=== PATIENT | male | born 1940 | race Two or more races ===

== ENCOUNTER 2024-01-09 10:51 | Emergency (ER) | payer MEDICARE, SELFPAY ==
[2024-01-09 11:35] VITALS: BP 167/83; PULSE 72; RESP 18; TEMP 37.2; O2SAT 98
[2024-01-09 11:51] VITALS: BMI 32.3
--- NOTE | 2024-01-09 12:02 | XR_ITS ---
Examination: Duplex scan of the upper extremity, unilateral left complete Date and time of exam: December 13, 2023 1337 hrs. Indications: Left arm pain burning sensation several months Technique: Duplex scan of the extremity veins using B-mode/grayscale imaging and Doppler spectral analysis and color flow Attention is directed to internal echogenicity, compression and augmentation involving these veins, color flow assessment, spectral analysis Findings: Major deep venous structures in the extremity demonstrate normal course and caliber. There is no evidence of deep vein thrombosis. Normal color flow and spectral analysis Impression: Negative for DVT..
--- NOTE | 2024-01-09 12:02 | EKG_ITS ---
[facility] (Formerly [facility]) Test Date: 2024-01-09 Pat Name: MARK ANTHONY COLES Department: Room: - Gender: Male Showroom Consultant: : 1940 Requested By: David Marinelli Order Number: [id number] Reading MD: David Marinelli Measurements Intervals [place] Rate: 55 P: 53 IA: 165 QRS: -5 QRSD: 92 T: 66 QT: 400 QTc: 384 Interpretive Statements SINUS BRADYCARDIA Compared to ECG 06/14/2023 20:27:31 Sinus rhythm no longer present /store/S0/[id number].pdf
--- NOTE | 2024-01-09 12:03 | XR_ITS ---
Examination: AP chest single view Technique one AP portable semiupright chest single view Date and time: January 09, 2020 4:12 PM Comparison October 03, 2023 Indications: Onset left-sided chest pain today Findings: Normal heart size Ectatic thoracic aorta. No pneumonia or pulmonary edema Moderate osteopenia Impression: No active disease
--- NOTE | 2024-01-09 12:04 | EDNOTE_ITS ---
ED Extremity Problem RME/HPI General Chief complaint: Extremity Problem,Nontraumatic Stated complaint: LEFT ARM PAIN WITH HX SHINGLES Time Seen by Provider: 01/09/24 11:51 Arrival date/time: 01/09/24 10:51 RME / HPI RME / HPI Narrative: 83-year-old male patient came in for evaluation regarding left arm pain. This been ongoing since June, comes and goes, getting worst for the last few days pain radiates to the left chest. Patient had a history of shingles last June. Patient denies any cough denies any other complaints no medication was taken prior to arrival. Related Data Previous Rx's ?Medication ?Instructions ?Recorded hydrocodone 5 mg-acetaminophen 325 1 tab PO Q6H PRN severe pain #10 10/10/17 mg tablet ([place]) tabs ibuprofen 600 mg tablet 600 mg PO TID PRN pain #20 tabs 10/10/17 prednisone 20 mg tablet 20 mg PO QDAY #7 tabs 10/10/17 ibuprofen 600 mg tablet 600 mg PO Q6H PRN pain #30 tabs 10/03/23 ondansetron 4 mg disintegrating 4 mg PO Q6H PRN nausea and 10/03/23 tablet vomiting #10 tabs ibuprofen 600 mg tablet 600 mg PO TID PRN pain #30 tabs 01/09/24 Allergies Allergy/AdvReac Type Severity Reaction Status Date / Time Penicillins Allergy Unknown Verified 01/09/24 10:57 Review of Systems Review of Systems Narrative Review of Systems: Review of system reviewed and within normal limits except mentioned in HPI ED Exam Narrative Physical exam: VITAL SIGNS: Reviewed. GENERAL APPEARANCE: Alert and interactive, follows commands, no acute distress, HEAD AND FACE: Non-traumatic. ENT: PERRL, pink conjunctivitis, eyelid no trauma, Mucous membrane moist. NECK: Supple, nontender, no nuchal rigidity. CHEST: No tenderness, no crepitus, no paradoxical movement, no retractions. LUNGS: Clear, well ventilated, symmetric, no rales, no wheezing, no ronchi, no stridor, good breath sounds bilaterally. HEART: Regular rate, regular rhythm, no murmur, no gallops. ABDOMEN: Soft, positive bowel sounds, nondistended, no guarding, nontender, no rebound, no masses, RECTAL: Deferred. GENITAL: Deferred. NEUROLOGICAL: Gross motor function intact sensory function intact, Appropriate for age. MUSCULOSKELETAL: low back nontender, full range of motion. EXTREMITIES: Left forearm tenderness, no swelling no redness, full range of motion. Distal neurovascular status intact bilateral upper extremity SKIN: Color pink, dry, no rash, no lacerations, no abrasions, no contusions. LYMPHATICS: Deferred. Course Quality Measures none Orders Category Date Time Status EKG (ED ONLY) *Do not use* NOW Care 01/09/24 12:03 Completed EKG (ED Only) Stat Exams 01/09/24 12:02 Draft US venous doppler UE LT Stat Exams 01/09/24 12:02 Taken XR chest 1V Stat Exams 01/09/24 12:03 Completed CBC [CBC] Stat Lab 01/09/24 12:16 Completed CMP [Comprehensive Metabolic Panel] Stat Lab 01/09/24 12:16 Completed PTT [Partial Thromboplastin Time] Stat Lab 01/09/24 12:16 Completed Troponin I Stat Lab 01/09/24 12:16 Completed Acetaminophen Tab [Tylenol ES Tab] Med 01/09/24 12:02 Discontinued 1,000 mg PO X1 ONE Vital Signs Vital signs: Vital Signs Temperature 98.9 F 01/09/24 11:35 Pulse Rate 72 01/09/24 11:35 Respiratory Rate 18 01/09/24 11:35 Blood Pressure 167/83 H 01/09/24 11:35 Pulse Oximetry (%) 98 01/09/24 11:35 Oxygen Delivery Method Room Air 01/09/24 11:35 Extremity Problem MDM Narrative MDM Narrative:: 83 year-old male patient came in for evaluation regarding left arm pain. This been ongoing since June, comes and goes, getting worst for the last few days pain radiates to the left chest. Patient had a history of shingles last June. Patient denies any cough denies any other complaints no medication was taken prior to arrival. Patient's cardiac workup all came back unremarkable. Ultrasound of the left lower extremity also came back unremarkable. Troponin is normal chest x-ray is normal. Results discussed with the patient. Patient stable for discharge home. Patient data External records reviewed:: None Clinical information provided by:: patient Social determinants that could affect healthcare access:: none Patient has the following chronic illnesses:: None How is presenting disease/condition affected by chronic disease/condition?: no chronic disease Evaluation data The following diagnostics were reviewed and interpreted by me:: lab results, radiology exam(s) and EKG tracing(s) Lab and/or radiology exams considered but not ordered:: None Interpretation Summary: EKG as interpreted by me showed sinus bradycardia, no ST segment elevation depression noted. Ultrasound of the left upper extremity is negative for DVT. Patient's cardiac workup all came back unremarkable. Troponin is normal Medications / Prescriptions Medications or Prescriptions considered but not ordered:: None Medication administrations:: Medication Administration History Discontinued Medications Acetaminophen (Acetaminophen 500 Mg Tablet) 1,000 mg PO X1 ONE Stop: 01/09/24 12:03 Last Admin: 01/09/24 12:19 Dose: 1,000 mg Documented By: MAHNAZ Tylenol Consultations Consultation(s) initiated? (list below): No Diagnosis Extremity Problem Differential Diagnosis: cellulitis, deep venous thrombosis of upper extremity and other (Arm pain) Most likely diagnosis given after review of the tests above:: Arm pain Admission Indicated Admission indicated?: not indicated Explain why admission is indicated or not indicated:: Stable Admission Request Was there a request for admission?: No Disposition Plan Disposition Plan: Discharge Discharge Attestation Discharge Attestation: The patient and all family members were given an opportunity to ask questions and understood the discharge instructions. Discharge instructions specifically effects, indications for sooner follow up or return to the emergency department, and the expected course of current diagnosis. Patient condition: Stable Discharge Plan Plan Patient Disposition: HOME (Self Care) Disposition Comment: stable Prescriptions/Referrals Prescriptions/Med Rec: New ibuprofen 600 mg tablet 600 mg PO TID PRN (Reason: pain) Qty: 30 0RF No Action ibuprofen 600 mg tablet 600 mg PO TID PRN (Reason: pain) Qty: 20 0RF hydrocodone-acetaminophen [[place]] 5-325 mg tablet 1 tab PO Q6H MDD 4 tabs per day PRN (Reason: severe pain) Qty: 10 0RF prednisone 20 mg tablet 20 mg PO QDAY Qty: 7 0RF ibuprofen 600 mg tablet 600 mg PO Q6H PRN (Reason: pain) Qty: 30 0RF ondansetron 4 mg tablet,disintegrating 4 mg PO Q6H PRN (Reason: nausea and vomiting) Qty: 10 0RF Referrals: Kyle Carrasco MD [Primary Care Provider] - In 1 week Problem List Clinical Impression: Arm pain Patient/Caregiver Discharge Instructions Discharge Activity: activity as tolerated Education Materials: Understanding the Pain Response Additional Instructions: Thank you for the opportunity for serving you today. You are stable for discharged . You are advised to: Follow-up with your PCP in 1 to 2 days Return to ED for worsening of symptoms Increase oral fluids Take medication as prescribed Print Language: Salvad[place] Stand Alone Forms: Ita Award Info., Patient Portal Info Letter PA/FAY Supervising Physician PA/FAY Supervising Physician: MD Michael
[2024-01-09] MEDS: ACETAMINOPHEN 500 MG TABLET 1000 MG PO (12:19)
[2024-01-09 12:41] LABS: Basophils % (Auto) 0 % (0-2.5); Eosinophils % (Auto) 0 % (0-10); Hematocrit 42.5 % (41.0-53.0); Immature Granulocytes % (Auto) 0 % (0-0); Immature Granulocytes Auto 0.02 Thou/mm3 (0.00-0.00); Lymphocytes # (Auto) 1.2 Thou/mm3 (1.0-4.8); Lymphocytes % (Auto) 20 % (10-50); Mean Corpuscular HGB Conc 35.3 g/dl (31.0-37.0); Mean Corpuscular Hemoglobin 30.1 pg (25.0-35.0); Mean Corpuscular Volume 85 fL (80-100); Monocytes # (Auto) 0.5 Thou/mm3 (0.0-0.8); Monocytes % (Auto) 8 % (0-12); Neutrophils # (Auto) 4.6 Thou/mm3 (1.8-7.7); Neutrophils % (Auto) 72 % (37-80); Nucleated Red Blood Cell % 0 /100 WBC (0); Platelet Count 219 Thou/mm3 (140-440); RDW Standard Deviation 38.4 fL (35.1-43.9); Red Blood Count 4.99 Miln/mm3 (4.50-5.90); White Blood Count 6.4 Thou/mm3 (3.8-10.6)
[2024-01-09 12:58] LABS: Partial Thromboplastin Time 25.8 Seconds (22.0-36.0)
[2024-01-09 12:59] LABS: Alanine Aminotransferase 16 U/L (10-49); Albumin, Serum 4.9 gm/dL (3.4-4.8); Albumin/Globulin Ratio 1.8 (1.2-2.2); Alkaline Phosphatase 104 U/L (46-116); Anion Gap 7 (7-16); Aspartate Amino Transferase 28 U/L (0-34); BUN/Creatinine Ratio 17 Ratio (12-20); Bilirubin,Total 0.6 mg/dL (0.3-1.2); Blood Urea Nitrogen 20 mg/dL (9-23); Calcium 10.1 mg/dL (8.3-10.6); Calcium (Corrected) 10.1 mg/dL (8.5-10.1); Carbon Dioxide 28.6 mMol/L (20.0-31.0); Chloride 97 mMol/L (98-107); Creatinine (Component) 1.2 mg/dL (0.6-1.3); Estimated Creatinine Clearance 49.2 mL/min (>60); Globulin 2.7 gm/dL (2.3-3.5); Glucose 136 mg/dL (74-106); Osmolality,Calculated 270 (275-295); Potassium 3.6 mMol/L (3.4-5.1); Sodium 133 mMol/L (136-145); Total Protein 7.6 gm/dL (5.7-8.2); Troponin I < 0.020 ng/mL (0.0-0.045); eGFR > 60 See Note
[2024-01-09 15:04] VITALS: BP 137/86; PULSE 57; RESP 18; TEMP 36.4; O2SAT 99
--- NOTE | 2024-01-09 16:02 | PC.NURSE ---
Called Radiology about reading xray, per Rosalind pipe connector states radiologists reading exams right now.
== END 2024-01-09 16:17 | disposition home or self-care (01) ==
PROVIDERS: Nurse Practitioner Family; Emergency Provider Emergency Medicine; PCP Family Medicine
DX: M79.602 Pain in left arm (principal); R07.9 Chest pain, unspecified
CPT/HCPCS: 36415; 71045; 80053; 84484; 85025; 85730; 93005; 93971; 99284; A9270

== ENCOUNTER 2024-07-05 09:33 | Emergency (ER) | payer MEDICARE, SELFPAY ==
[2024-07-05 09:35] VITALS: BMI 29.0
[2024-07-05 09:56] VITALS: BP 152/84; PULSE 59; RESP 18; TEMP 36.7; O2SAT 98
--- NOTE | 2024-07-05 10:06 | XR_ITS ---
Examination: Knee, right , 3 views Technique: Knee AP, lateral, oblique 3 views Date and time of exam: July 05, 2024 1018 hours INDICATIONS: Patient fell 8 days ago with injury to the knee, knee pain FINDINGS: No fracture or dislocation. Small knee effusion IMPRESSION: No fracture or dislocation
--- NOTE | 2024-07-05 10:06 | XR_ITS ---
Examination: Foot, right, 3 views Technique: AP, oblique, lateral views foot, 3 views Date and time of exam: July 05, 2024 1018 hours INDICATIONS: Patient fell 8 days ago with injury to foot, foot pain. FINDINGS: Moderate osteopenia. No acute fracture. No dislocation. IMPRESSION: No acute fracture
--- NOTE | 2024-07-05 10:06 | XR_ITS ---
EXAMINATION: Ankle, right 3 views . Technique: Ankle AP, oblique, lateral 3 views Date and time of exam: July 05, 2024 1024 hours INDICATIONS: Patient fell 8 days ago with intrathecal, ankle pain. FINDINGS: No fracture or dislocation. Moderate osteopenia IMPRESSION: No fracture or dislocation
--- NOTE | 2024-07-05 10:07 | EDNOTE_ITS ---
<Statement entered by Melvina Cisneros MD - 07/07/24 06:15> As co-signing physician, I was present and available for consult prn. I concur with the plan and care as documented by the midlevel provider. ED Fall Injury RME/HPI General Chief Complaint: Fall Stated Complaint: CAN'T WALK S/P FALL Time Seen by Provider: 07/05/24 09:53 Source: patient Arrival date/time: 07/05/24 09:33 84-year-old male with no known medical history presents to the emergency room w ith a chief complaint of a ground-level fall that occurred while trying to sit in a chair today. Patient states he is having right leg pain that begins in the knee and radiates down all the way to the foot. Mode of arrival: ambulatory Limitations: no limitations Related Data Previous Rx's ?Medication ?Instructions ?Recorded hydrocodone 5 mg-acetaminophen 325 1 tab PO Q6H PRN se sincere pain #10 10/10/17 mg tablet ([place]) tabs ibuprofen 600 mg tablet 600 mg PO TID PRN pain #20 t abs 10/10/17 prednisone 20 mg tablet 20 mg PO QDAY #7 tabs ibuprofen 600 mg tablet 600 mg PO Q6H PRN pain #30 t abs 10/03/23 ondansetron 4 mg disintegrating 4 mg PO Q6H PRN nausea and 10/03/23 tablet vomiting #10 tabs ibuprofen 600 mg tablet 600 mg PO TID PRN pain #30 t abs 01/09/24 Allergies Allergy/AdvReac Type Severity Reaction Status Date / Time Penicillins Allergy Unknown Verified 07/05/24 09:43 Review of Systems Review of Systems Systems Reviewed: All systems reviewed, normal except as documented Constitutional Constitutional: Reports system reviewed and no additional complaints, except as documented, Denies fatigue, Denies fever(s), Denies headache(s) and Denies weakness Eyes Eyes: Reports system reviewed and no additional complaints, except as documented, Denies blurry vision and Denies change in vision ENT Ears, Nose, Mouth, and Throat: Reports system reviewed and no additional complaints, except as documented, Denies otalgia, Denies headache(s), Denies nasal congestion, Denies throat swelling and Denies vertigo Cardiovascular Cardiovascular: Reports system reviewed and no additional complaints, except as documented, Denies chest pain, Denies dyspnea and Denies dyspnea on exertion Respiratory Respiratory: Reports system reviewed and no additional complaints, except as documented, Denies chest congestion, Denies cough, Denies dyspnea, Denies dyspnea on exertion and Denies wheezing Gastrointestinal Gastrointestinal: Reports system reviewed and no additional complaints, except as documented, Denies abdominal pain, Denies cramping, Denies nausea and Denies vomiting Genitourinary Genitourinary: Reports system reviewed and no additional complaints, except as documented, Denies dysuria and Denies hematuria Musculoskeletal Musculoskeletal: Reports system reviewed and no additional complaints, except as documented and Denies back pain Integumentary/Breasts Skin/Breast: Reports system reviewed and no additional complaints, except as documented and Denies wounds Neurologic Neurologic: Reports system reviewed and no additional complaints, except as documented, Denies confusion, Denies headache(s), Denies lack of coordination, Denies vertigo and Denies weakness Psychiatric Psychiatric: Reports system reviewed and no additional complaints, except as documented, Denies anxiety, Denies confusion, Denies depression, Denies paranoia, Denies suicidal ideation and Denies tactile hallucinations Endocrine Endocrine: Reports system reviewed and no additional complaints, except as documented and Denies fatigue Hematologic/Lymphatic Hematologic/Lymphatic: Reports system reviewed and no additional complaints, except as documented and Denies lymphadenopathy Allergic/Immunologic Allergic/Immunologic: Reports system reviewed and no additional complaints, except as documented, Denies throat swelling, Denies urticaria and Denies wheezing ED Exam General Limitations: Present no limitations General appearance: Present alert and in no apparent distress Head Head exam: Present atraumatic Eye Eye exam: Present normal appearance, PERRL and EOMI ENT ENT exam: Present normal exam, normal oropharynx and mucous membranes moist Neck Neck exam: Present normal inspection, full ROM and trachea midline Chest Chest inspection: Present normal inspection and symmetric chest wall rise Respiratory Respiratory exam: Present normal lung sounds bilaterally Cardiovascular Cardiovascular exam: Present regular rate, normal rhythm and normal heart sounds Abdominal Exam Abdominal exam: Present soft and normal bowel sounds Extremities Exam Extremities exam: Present normal inspection and full ROM Expanded Lower Extremity Exam Hip/Pelvis exam: Present normal inspection Upper leg exam: Present normal inspection and tenderness Knee exam: Present tenderness, swelling, pain with valgus and pain with varus; Absent full ROM Gait: observed and limited by pain Back Exam Back exam: Present normal inspection and full ROM Neurological Exam Neurological exam: Present alert, oriented X3 and CN II-XII intact Psychiatric Psychiatric exam: Present normal affect and normal mood Skin Skin exam: Present warm, dry, intact and normal color Course Quality Measures none Orders Category Date Time Status US venous doppler LE RT Stat Exams 07/05/24 13:23 Completed XR ankle comp RT min 3V Stat Exams 07/05/24 10:06 Completed XR foot comp RT min 3V Stat Exams 07/05/24 10:06 Completed XR knee RT 3V Stat Exams 07/05/24 10:06 Completed XR tibia fibula RT 2V Stat Exams 07/05/24 10:09 Completed Vital Signs Vital signs: Vital Signs Temperature 98.0 F 07/05/24 09:56 Pulse Rate 59 L 07/05/24 09:56 Respiratory Rate 18 07/05/24 09:56 Blood Pressure 152/84 H 07/05/24 09:56 Pulse Oximetry (%) 98 07/05/24 09:56 Oxygen Delivery Method Room Air 07/05/24 09:56 Fall MDM Narrative MDM Narrative:: 84-year-old male with no known medical history presents to the emergency room with a chief complaint of a ground-level fall that occurred while trying to sit in a chair today. Patient states he is having right leg pain that begins in the knee and radiates down all the way to the foot. Patient is hemodynamically stable and in no apparent distress. Physical examination shows tenderness and pain to the patient's right leg. The patient also has tenderness and pain behind the knee. An x-ray of the whole foot was completed and was negative for any acute fracture or dislocations. I reevaluated the patient and the patient was still complaining of pain I decided to do a Doppler which was negative for DVT. Patient was given crutches and taught how to walk the patient is having pain and tenderness and difficulty bearing weight on that foot but was able to walk with crutches. The patient is able to move the foot. Patient was educated to follow-up with his primary care provider to assess for any ligament damage or tears of the knee. Patient was discharged and educated to follow-up with primary care provider in the next 24 to 48 hours and return to the emergency room for any evidence of worsening signs or symptoms Patient data External records reviewed:: [facility] previous records Clinical information provided by:: patient Social determinants that could affect healthcare access:: none Patient has the following chronic illnesses:: No chronic illness How is presenting disease/condition affected by chronic disease/condition?: no chronic disease Evaluation data The following diagnostics were reviewed and interpreted by me:: lab results and radiology exam(s) Lab and/or radiology exams considered but not ordered:: Labs and radiology exams considered and ordered Interpretation Summary: X-ray right knee-no acute fracture or dislocation Ultrasound Doppler-no DVT Medications / Prescriptions Medications or Prescriptions considered but not ordered:: Medication given Medication administrations:: Medication given Consultations Consultation(s) initiated? (list below): No Diagnosis Fall Differential Diagnosis: other (DVT/knee fracture/knee dislocation/knee sprain) Most likely diagnosis given after review of the tests above:: Knee sprain Admission Indicated Admission indicated?: not indicated Admission Request Was there a request for admission?: No Disposition Plan Disposition Plan: Discharge Discharge Attestation Discharge Attestation: The patient and all family members were given an opportunity to ask questions and understood the discharge instructions. Discharge instructions specifically effects, indications for sooner follow up or return to the emergency department, and the expected course of current diagnosis. Patient condition: Stable Discharge Plan Plan Patient Disposition: HOME (Self Care) Discharge Disposition comment: Stable Prescriptions/Referrals Prescriptions/Med Rec: No Action ibuprofen 600 mg tablet 600 mg PO TID PRN (Reason: pain) Qty: 20 0RF hydrocodone-acetaminophen [[place]] 5-325 mg tablet 1 tab PO Q6H MDD 4 tabs per day PRN (Reason: severe pain) Qty: 10 0RF prednisone 20 mg tablet 20 mg PO QDAY Qty: 7 0RF ibuprofen 600 mg tablet 600 mg PO Q6H PRN (Reason: pain) Qty: 30 0RF ondansetron 4 mg tablet,disintegrating 4 mg PO Q6H PRN (Reason: nausea and vomiting) Qty: 10 0RF ibuprofen 600 mg tablet 600 mg PO TID PRN (Reason: pain) Qty: 30 0RF Referrals: Toy Dave PA-C [Primary Care Provider] - In 1 week Problem List Clinical Impression: Right knee sprain Patient/Caregiver Discharge Instructions Education Materials: ED ANDRE Wrap, ED Knee Sprain Additional Instructions: Por favor, consulte con chris m?dico de cabecera en las pr?ximas 24 a 48 horas. Lisa radiograf?as fueron negativas para fracturas o luxaciones agudas. Chris ecograf?a fue negativa para co?gulos de [place]. Por favor, consulte con chris m?dico de cabecera, ya que est? indicada deloris resonancia magn?juan francisco de rodilla para detectar da?os o desgarros de ligamentos. Si observa cualquier signo de empeoramiento de los signos o s?ntomas, acuda a urgencias de inmediato. Print Language: Citizen Of [place] Stand Alone Forms: Ita Award Info., Patient Portal Info Letter PA/LBD TEACHER Supervising Physician PA/LBD TEACHER Supervising Physician: Dr. CISNEROS
--- NOTE | 2024-07-05 10:09 | XR_ITS ---
Examination: Tibia-Fibula, right , 2 views Technique: Tibia-fibula AP lateral 2 views Date and time of exam: July 05, 2024 1018 hours INDICATIONS: Patient fell 8 days ago with injury to the lower leg, lower leg pain. FINDINGS: No fracture or dislocation. IMPRESSION: No fracture or dislocation. No opaque foreign body
--- NOTE | 2024-07-05 13:23 | XR_ITS ---
Examination: Duplex scan of the lower extremity, unilateral right complete Date and time of exam: July 05, 2024 1351 hours INDICATIONS: Patient fell today with injury to the leg, right leg pain Technique: Duplex scan of the extremity veins using B-mode/grayscale imaging and Doppler spectral analysis and color flow Attention is directed to internal echogenicity, compression and augmentation involving these veins, color flow assessment, spectral analysis Findings: Major deep venous structures in the extremity demonstrate normal course and caliber. There is no evidence of deep vein thrombosis. Normal color flow and spectral analysis Impression: Negative for DVT..
== END 2024-07-05 14:44 | disposition home or self-care (01) ==
PROVIDERS: Emergency Provider Emergency Medicine; PCP Family Medicine
DX: S83.91XA Sprain of unspecified site of right knee, initial encounter (principal); W18.30XA Fall on same level, unspecified, initial encounter
CPT/HCPCS: 73562; 73590; 73610; 73630; 93971; 99284

== ENCOUNTER 2024-11-03 08:32 | Outpatient (RCR) | payer MEDICARE, SELFPAY ==
--- NOTE | 2024-11-03 09:21 | PT.OIERPT ---
PT OP Initial Eval Patient Information Outpatient Physical Therapy Treatment Date: 11/03/24 Visit Reasons: pain left elbow Medical Diagnosis: M25.522 Treatment Dx #1: L UE pain Treatment Dx #2: C/S pain with radiculopathy into L UE Start of Care: 11/03/24 Date of Onset: 1.5 yrs ago Smoking Status Smoking Status: Never smoker Initial Assessment Subjective: Pt is 84 yr old irish speaking male c/o L elbow pain. He points to the medial elbow and tricep and axillary region on the L is sensitive to touch and pain interrupts sleep. Increased pain with reaching up and turning the head. PLOF: pt had full use of L UE for ADL's and HH chores not limited by pain Pt goal: to get rid of the pain Objective: B mental health technician strength: 50 lbs L elbow ROM: Flexion: full Extension: full TTP: high of medial elbow and tricep mm L shoulder AROM: FF: 90 deg ABd: 90 deg with pain ER: 75 deg with pain C/S screen: L UE pain into the shoulder and elbow with L sidebending and rotation TTP: moderate of superior and posterior shoulder and L side of C/S Assessment: Pt presentation consistent with ulnar nerve compression at the cubital tunnel. Pt also has radiating pain down the UE with cervical rotation and sidebending to the L consistent with stenosis and cervical radiculopathy. Pt may benefit from therapy and has fair rehab potential to meet goals. PT recommends further diagnostic imaging of the C/S. Short Term and Nursing Home Goals 1. Ind with HEP 2. Dec TTP of medial elbow from high to min 3. Pt will sleep uninterrupted by elbow pain x5 hrs 4. Pt will tolerate HH chores x30 mins with <=3/10 elbow pain Treatment Plan ?1. Manual therapy ? 2. Therex ? 3. Modalities as indicated, moist heat, ice, estim Frequency and Duration: 1-2x a week for 8 Rx sessions Certification Dates: 11/03/24 to 01/01/25 Procedure Charges OP PT Eval Mod Complex 30 minutes: Yes
== END 2024-11-08 23:59 | disposition home or self-care (01) ==
LOC: CPTX 08:32
PROVIDERS: PCP Family Medicine; Referring Provider Family Medicine; Visit Provider Family Medicine
DX: M54.12 Radiculopathy, cervical region (principal); M25.522 Pain in left elbow
CPT/HCPCS: 97162